=== PATIENT | female | born 1970 | race Caucasian/White ===

== ENCOUNTER 2018-11-25 17:32 | Emergency (ER) | payer OTHER ==
[~2018-11-25] VITALS: Ht 154.9 cm; Wt 67.7 kg
[2018-11-25] MEDS ORDERED: METH2.5 PO (17:43)
[2018-11-25] MEDS ORDERED: IBUPROFEN 600 MG TABLET PO ONE (18:15)
[2018-11-25 19:13] VITALS: BP 128/56
== END 2018-11-25 19:35 | disposition home or self-care (01) ==
LOC: EMS 17:34
DX: S52.611A Displaced fracture of right ulna styloid process, initial encounter for closed fracture (principal); S52.511A Displaced fracture of right radial styloid process, initial encounter for closed fracture; Z90.710 Acquired absence of both cervix and uterus; W19.XXXA Unspecified fall, initial encounter; Y93.89 Activity, other specified; Y92.89 Other specified places as the place of occurrence of the external cause; Y99.8 Other external cause status
CPT/HCPCS: 29105